=== PATIENT | female | born 1960 | race Caucasian/White ===

== ENCOUNTER 2017-03-02 23:11 | Emergency (ER) | payer SELFPAY ==
[~2017-03-02] VITALS: Ht 165.1 cm; Wt 50.0 kg
[2017-03-03] MEDS ORDERED: XANAX0.5 MG PO (00:57)
[2017-03-03 01:30] VITALS: BP 138/76
== END 2017-03-03 01:30 | disposition home or self-care (01) | DRG 880 ==
LOC: ED 23:11
DX: F41.0 Panic disorder [episodic paroxysmal anxiety] (principal); F17.210 Nicotine dependence, cigarettes, uncomplicated
CPT/HCPCS: J2060

== ENCOUNTER 2019-10-20 21:24 | Emergency (ER) | payer SELFPAY ==
[~2019-10-20] VITALS: Ht 165.1 cm; Wt 54.5 kg
[~2019-10-20 21:24] MED LIST: XANAX0.5 MG PO
[2019-10-20] MEDS ORDERED: SERTRALINE HCL100 MG PO (22:18)
[2019-10-20] MEDS ORDERED: ATIVAN1 MG PO (22:18)
[2019-10-20] MEDS ORDERED: NAPROXEN500 MG PO (22:55)
[2019-10-20] MEDS ORDERED: FLEXERIL PO (22:56)
[2019-10-20 23:03] VITALS: BP 140/77
== END 2019-10-20 23:10 | disposition home or self-care (01) | DRG 914 ==
LOC: ED 21:24
DX: S09.90XA Unspecified injury of head, initial encounter (principal); S33.5XXA Sprain of ligaments of lumbar spine, initial encounter; F17.210 Nicotine dependence, cigarettes, uncomplicated; W10.9XXA Fall (on) (from) unspecified stairs and steps, initial encounter; Y92.009 Unspecified place in unspecified non-institutional (private) residence as the place of occurrence of the external cause